=== PATIENT | male | born 1975 | race Caucasian/White ===

== ENCOUNTER 2018-04-30 12:20 | Emergency (ER) | END 2018-04-30 13:18 | disposition home or self-care (01) ==

== ENCOUNTER 2019-04-24 21:03 | Emergency (ER) | payer OTHER ==
[~2019-04-24] VITALS: Ht 200.7 cm; Wt 120.7 kg
[2019-04-24 21:07] VITALS: Ht 200.7 cm; Wt 120.7 kg
--- NOTE | 2019-04-24 22:44 | ERD ---
ER Documentation Chief Complaint Chief Complaint wound check right lower leg HPI The patient is a 43-year-old male, presenting to the ER because of chronic right ankle wound for more than a year, denies fever, chills, neck pain, chest pain, dyspnea, abdominal pain, vomiting, dysuria, diarrhea. He smokes and drinks and does illicit drug Past medical history: History of right lower extremity DVT more than 2 years ago Past surgical history: None ROS All systems reviewed and are negative except as per history of present illness. Medications Home Meds Active Scripts Sulfamethoxazole/Trimethoprim* (Bactrim Ds* Tablet) 1 Each Tablet, 1 TAB PO BID, #20 TAB Prov:ALYSON GOYAL MD 04/25/19 Cephalexin* (Keflex*) 500 Mg Capsule, 500 MG PO QID for 10 Days, CAP Prov:ALYSON GOYAL MD 04/25/19 Allergies Allergies: Coded Allergies: vancomycin (Verified Allergy, Unknown, 04/30/18) PMhx/Soc History of Surgery: No Anesthesia Reaction: No Hx Neurological Disorder: No Hx Respiratory Disorders: No Hx Cardiac Disorders: No Hx Psychiatric Problems: No Hx Miscellaneous Medical Probl: Yes (DVT RIGHT KNEE) Hx Alcohol Use: No Hx Substance Use: No Hx Tobacco Use: No Physical Exam Vitals Vital Signs Date Temp Pulse Resp B/P (MAP) Pulse Ox O2 O2 Flow FiO2 Time Delivery Rate 04/25/19 88 24 131/77 98 Room Air 01:07 (95) 04/24/19 98.2 91 18 149/100 100 21:07 (116) Physical Exam Const: No acute distress. Head: Atraumatic. Eyes: Normal Conjunctiva. ENT: Normal External Ears, Nose and Mouth. Neck: Full range of motion. No meningismus. Resp: Clear to auscultation bilaterally. Cardio: Regular rate and rhythm. Abd: Soft, non distended, normal bowel sounds, non tender. Skin: No petechiae or rashes. Back: No midline or flank tenderness. Ext: Chronic right ankle wound with minimal discharge, vague calf discomfort Neur: Awake and alert. No focal deficit Psych: Normal Mood and Affect. Result Diagram: 04/25/19 0018 04/25/19 0018 Results 24 hrs Laboratory Tests Test 04/25/19 00:18 White Blood Count 7.0 10^3/ul Red Blood Count 4.75 10^6/ul Hemoglobin 14.3 g/dl Hematocrit 41.2 % Mean Corpuscular Volume 86.7 fl Mean Corpuscular Hemoglobin 30.1 pg Mean Corpuscular Hemoglobin Concent 34.7 g/dl Red Cell Distribution Width 13.1 % Platelet Count 189 10^3/UL Mean Platelet Volume 9.7 fl Immature Granulocytes % 0.100 % Neutrophils % 51.4 % Lymphocytes % 38.8 % Monocytes % 7.6 % Eosinophils % 1.7 % Basophils % 0.4 % Nucleated Red Blood Cells % 0.0 /100WBC Immature Granulocytes # 0.010 10^3/ul Neutrophils # 3.6 10^3/ul Lymphocytes # 2.7 10^3/ul Monocytes # 0.5 10^3/ul Eosinophils # 0.1 10^3/ul Basophils # 0.0 10^3/ul Nucleated Red Blood Cells # 0.0 10^3/ul Sodium Level 140 mmol/L Potassium Level 3.6 mmol/L Chloride Level 105 mmol/L Carbon Dioxide Level 25 mmol/L Anion Gap 10 Blood Urea Nitrogen 25 mg/dl Creatinine 1.06 mg/dl Est Glomerular Filtrat Rate mL/min > 60 mL/min Glucose Level 104 mg/dl Calcium Level 9.1 mg/dl Current Medications Medications Dose Sig/Ernestina Start Time Status Last (Trade) Ordered Route PRN Stop Time Admin Dose Reason Admin Labetalol 10 mg ONCE ONCE 04/24/19 DC HCl IV 23:00 (Labetalol) 04/25/19 00:46 Cephalexin 500 mg ONCE ONCE 04/25/19 DC (Keflex) PO 02:00 04/25/19 02:02 1 tab ONCE ONCE 04/25/19 DC Trimethoprim/ PO 02:00 04/25/19 02:02 Sulfamethoxaz ole (Bactrim (Ds)) Procedures/MDM Verbal ultrasound is negative for DVT MEDICAL MAKING DECISION: The patient is a 43-year-old male, presenting with chronic right ankle ulceration, most likely venous stasis ulcer. He was treated with Keflex and Bactrim and is stable for outpatient follow-up The differential diagnoses considered include but are not limited to ulcer, cellulitis, abscess, DVT Departure Diagnosis: Primary Impression: Chronic ulcer of ankle, right, limited to breakdown of skin Additional Impression: Amphetamine abuse Condition: Good Comments He was discharged with Bactrim DS and Keflex The patient's blood pressure was elevated (>120/80) but appears stable without evidence of hypertension emergency or urgency. The patient was counseled about the risks of hypertension and urged to pursue outpatient monitoring and therapy within a week with their primary care physician. I discussed the findings with the patient. I advised the patient to follow-up w ith the primary physician in about 1-2 days, sooner if needed and return if any concern. Disclaimer: Inadvertent spelling and grammatical errors are likely due to EHR/dictation software use and do not reflect on the overall quality of patient care. Also, please note that the electronic time recorded on this note does not necessarily reflect the actual time of the patient encounter. ALYSON GOYAL MD Apr 24, 2019 22:43
[2019-04-24] MEDS ORDERED: LABETALOL HCL 20MG INJ IV ONE (23:00)
[2019-04-25] MEDS ORDERED: CEPH-443 PO (01:58)
[2019-04-25] MEDS ORDERED: SULF1TAB31 PO (01:58)
[2019-04-25] MEDS ORDERED: CEPHALEXIN 500 MG CAP PO ONE (02:00)
[2019-04-25] MEDS ORDERED: TRIMETHOPRIM/SULFAMETHOX (DS) TAB PO ONE (02:00)
[2019-04-25 03:34] VITALS: BP 132/75; PULSE 80; RESP 20
== END 2019-04-25 03:35 | disposition home or self-care (01) ==
LOC: E/R 21:03
DX: L97.311 Non-pressure chronic ulcer of right ankle limited to breakdown of skin (principal); F15.10 Other stimulant abuse, uncomplicated
CPT/HCPCS: 80048; 85025; 87070; 93970; Z7502; Z7610